=== PATIENT | female | born 1980 | race African-American/Black ===

== ENCOUNTER 2024-08-25 02:20 | Emergency (ER) | payer BC ==
[2024-08-25] MEDS ORDERED: Amoxicillin 500 MG Cap PO ONE (02:21)
[2024-08-25] MEDS: Ketorolac 30 MG/ML SDV IM ONE (02:56)
[2024-08-25] MEDS: Lidocaine 2% Viscous Solution 15 ML UD PO ONE (02:57)
== END 2024-08-25 03:09 | disposition home or self-care (01) ==
LOC: FB.ED 02:20
DX: K04.7 Periapical abscess without sinus (principal); E11.9 Type 2 diabetes mellitus without complications; E66.9 Obesity, unspecified; F17.210 Nicotine dependence, cigarettes, uncomplicated; Z88.8 Allergy status to other drugs, medicaments and biological substances
CPT/HCPCS: 96372; 99282; A9270; J1885